=== PATIENT | female | born 1955 | race Caucasian/White ===

== ENCOUNTER → 2019-04-26 | Outpatient (CLI) | payer BC, SELFPAY ==
--- NOTE | 2019-04-26 15:04 | RAD_ITS ---
STUDY: X-RAY - RIGHT KNEE REASON FOR EXAM: Female, 63 years old. Knee pain TECHNIQUE: 4 view(s) of the knee. COMPARISON: None. FINDINGS: Normal visualized distal femur. Normal visualized proximal tibia and fibula. Normal proximal tibiofibular articulation. Normal medial femorotibial compartment. Normal lateral femorotibial compartment. Normal patellofemoral articulation. The soft tissue structures are unremarkable. RAD/Knee 4 or More Views IMPRESSION: Normal x-ray examination of the knee. Electronically Signed: Lazaro Miller MD at 15:33 EDT Tel , Service support ,
--- NOTE | 2019-04-26 15:04 | RAD_ITS ---
STUDY: X-RAY - PELVIS AND RIGHT HIP REASON FOR EXAM: Female, 63 years old. Hip pain TECHNIQUE: 3 views of the pelvis and hip. COMPARISON: None. FINDINGS: There is a non-specific bowel gas pattern. Normal visualized soft tissue structures. Normal bilateral iliac wings, sacroiliac joints and visualized sacrum. Normal bilateral superior and inferior pubic rami. Normal pubic symphysis. Normal bilateral ischial tuberosities. Normal visualized femoral head. Normal acetabulum. Normal hip joint. RAD/HIP, UNI W/ Pelvis 2-3 Views IMPRESSION: Normal x-ray examination of the pelvis and hip. Electronically Signed: Lazaro Miller MD at 15:34 EDT Tel , Service support ,
== END | disposition home or self-care (01) ==
LOC: MTRAD 15:02
PROVIDERS: Family Provider Family Medicine; PCP Family Medicine; Referring Provider Family Medicine; Visit Provider Family Medicine
DX: M79.604 Pain in right leg (principal)
CPT/HCPCS: 73502; 73564

== ENCOUNTER → 2019-09-27 14:01 | Outpatient (CLI) | payer BC, SELFPAY ==
--- NOTE | 2019-09-27 14:04 | RAD_ITS ---
STUDY: X-RAY - PELVIS AND RIGHT HIP REASON FOR EXAM: Female, 64 years old. Atraumatic right hip pain. TECHNIQUE: 3 views of the pelvis and hip. COMPARISON: April 26, 2019 FINDINGS: There is a non-specific bowel gas pattern. Normal visualized soft tissue structures. Normal bilateral iliac wings, sacroiliac joints and visualized sacrum. Normal bilateral superior and inferior pubic rami. Normal pubic symphysis. Normal bilateral ischial tuberosities. Normal visualized femoral head. Normal acetabulum. Normal hip joint. RAD/HIP, UNI W/ Pelvis 2-3 Views IMPRESSION: No interval change and no acute finding. Electronically Signed: Elian Santiago MD at 17:59 EST , Service support ,
== END ==
PROVIDERS: PCP Family Medicine; Referring Provider Family Medicine; Visit Provider Family Medicine
DX: M25.551 Pain in right hip (principal)
CPT/HCPCS: 73502

== ENCOUNTER 2019-10-05 11:48 | Outpatient (RCR) | payer BC, SELFPAY ==
--- NOTE | 2019-10-05 12:57 | HP.PTEVAL_ITS ---
Patient's Visit Information ROBINSON MARIA is a 64 year old F referred to Physical Therapy by Dr. Edie Salas MD with a diagnosis of RIGHT HIP OA. Date of Evaluation: 10/05/19 Physical Therapist: Lori Quick PT, Cert MDT - Visit Plan Frequency: 2x /Week Duration: 4-6 Months Plan: AQUATIC THERAPY FOR BACK AND RIGHT LE PAIN RELEIF, POSTURE CORRECTION/STRENGTHENING, INSTRUCTION IN APPROPRIATE BODY MECHANICS AND ACTIVITY MODIFICATIONS. DLS STARTING WITH A NEUTRAL SPINE PROGRESSING ROM TOLERATED. LALO LE ROM, STRETCHING AND STRENGTHENING. HEP INSTRUCTION. - Subjective Findings: Work/Leisure: [employer] [facility]. Disability: NO. Present symptoms: LBP, RIGHT HIP, THIGH, LEG, FOOT AND TOE PAIN. NO NUMBNESS OR TINGLING. RIGHT LE WEAKNESS. Present since: RIGHT HIP/LEG PAIN STARTED ABOUT MAR 2019. Pain Scale: WORST 8/10, LEAST 2/10. Currently: 6/10 - GETTING WORSE. Commenced as a result of: NO APPARENT REASON. Symptoms at onset: RIGHT HIP. Worse: WALKING, RIGHT SDLY. Better: SITTING. Disturbed sleep: YES. Previous history/Previous treatment: RIGHT HIP PAIN ABOUT 5 YEARS AGO - MILD BONE SPURS. HAD PT. GOT BETTER WITH TIME. FULL RECOVERY. NO INJECTIONS. NO HIP SURGERY. 1996 L5S1 DISECTOMY (SCIATICA DOWN RIGHT LEG) - FULL RECOVERY. Treatment this episode: HEAT, ICE, WALKING, OTC MEDS, TENS. NO SPECIALIST CONSULTS THIS EPIDODE. Coughing/sneezing/straining: NEGATIVE. Gait: SLOW, LOOKS DOWN, HUNCHED OVER, LIMP. TRYIES TO STOP AND STAND UP STRAIGHT BUT DOESN'T HELP. Difficulty initiating urinatin: NO. Accidents: NO. Unexplained weight loss: NO. Imaging: RECENT RIGHT HIP X- RAY. PMH: UNREMARKABLE. Recent major surgery: UNREMARKABLE - Objective Sitting/Standing Posture: POOR. SCOLIOSIS? Lordosis: REDUCED. Lateral shift: MILD LEFT. Relevant shift: NO. Active Correction of posture: WORSE. Other Observations: INDEP SLOW ANTALGIC GAIT WITH LIMP ON RIGHT LE. NO ASSISTIVE DEVICES. NO LOB. Motor deficit: LLE 5/5. RIGHT LE: HIP 4/5, KNEE 5/5, ANKLE 5/5. Sensory deficit: MILD ALTERED SENSATION RIGHT LATERAL THIGH COMPARED TO LEFT. ROM deficit: LALO LE'S WFL. Reflexes: 2/3 LALO LE'S. Dural Signs: POSITIVE RIGHT LE. Lumbar mvmt loss: flex - MOD. ext - SELENE. R SG - SELENE - PRODUCES LBP AND SHOOTING PAIN DOWN RIGHT LE. L SG - MOD. Core strength: POOR. Palpation: MILD TENDERNESS WITH PALPATION OF THE RIGHT LATERAL HIP AND THIGH REGION. VERY TIGHT LALO LUMBAR PARASPINALS. TREATMENT: NEUROMUSCULAR REEDUCATION - RETRAINING OF MVMT AND POSTURE FOR SITTING, LYING AND STANDING ACTIVITIES. - Goals Goal 1:: DECREASE C/O LOW BACK AND RIGHT LE PAIN Goal Time Frame: 4-6 Weeks Goal 2:: IMPROVE BENDING, LIFTING, STANDING AND WALKING FUNCTION Goal Time Frame: 4-6 Weeks Goal 3:: PATIENT WILL BE INDEP WITH A WATER EX PROGRAM AND HEP FOR CONTINUED IMPROVEMENT ONCE FORMAL PHYSICAL THERAPY CONCLUDES. Goal Time Frame: 4-6 Weeks - Rehabilitation Potential Rehabilitation Potential: Fair - Anticipated Interventions Patient/Client Instruction: Educate patient on: Condition, Plan of Care, Risk Factors, Benefits of Fitness Program For the Purpose of:: To improve self management Therapeutic Exercise to Include: Strength training, Balance training, Postural training, Flexibilty training, Gait and locomotor training, Neuromotor development, In an aquatic setting, Dynamic Lumbar Stabilization For the Purpose of:: To decrease pain, To increase ROM, To improve muscle performance and motor function, To increase tolerance to activity/condition/position, To improve ability of physical actions for home/community/work/leisure, To improve gait and locomotor functions Thank you for the opportunity to evaluate your patient. For Medicare and Medicare HMO plans, please review the plan of care and approve it. It will need to be FAXED BACK to us at [phone] for Medicare purposes. For Medicare only, by signing this I certify the plan of care. Please let me know if there are questions or concerns regarding this plan of care. Physician Signature: Date:
--- NOTE | 2019-11-24 15:11 | HP.PT.NRP ---
ROBINSON MARIA was seen in my office for initial evaluation on 10/05/19. The following Plan of Care was established for this patient: Initial Frequency: 2x /Week Initial Duration: 4-6 Months Patient/Client Instruction: Educate patient on: Condition, Plan of Care, Risk Factors, Benefits of Fitness Program For the Purpose of:: To improve self management Therapeutic Exercise to Include: Strength training, Balance training, Postural training, Flexibilty training, Gait and locomotor training, Neuromotor development, In an aquatic setting, Dynamic Lumbar Stabilization For the Purpose of:: To decrease pain, To increase ROM, To improve muscle performance and motor function, To increase tolerance to activity/condition/position, To improve ability of physical actions for home/community/work/leisure, To improve gait and locomotor functions This patient was last seen in our office 10/05/19. Pertinent comments regarding their Physical therapy will appear below: This patient has not returned to Physical Therapy and is appropriate to return to MD for further follow-up as needed. At this point I will be discontinuing this patient from physical therapy. I would be happy to see this patient again in the future if found appropriate by the physician. Thank you! Lori Quick, PT, Cert MDT
== END 2019-10-05 19:00 | disposition home or self-care (01) ==
LOC: PT 11:48
PROVIDERS: PCP Family Medicine; Referring Provider Family Medicine; Visit Provider Family Medicine
DX: M16.11 Unilateral primary osteoarthritis, right hip (principal)
CPT/HCPCS: 97112; 97162

== ENCOUNTER → 2019-11-03 11:57 | Outpatient (CLI) | payer BC, SELFPAY ==
--- NOTE | 2019-11-03 12:14 | BI_ITS ---
MAMMOGRAPHY - BILATERAL SCREENING REASON FOR EXAM: Female, 64 years old. Routine annual screening examination. PERTINENT HISTORY: Non-contributory. Bilateral breast implants. TECHNIQUE: Digital bilateral breast jose a (3D mammographic acquisition) in the CC and MLO projections. 2-D mediolateral oblique (MLO) and craniocaudad (CC) views of both breasts were obtained. CAD: Full Field Digital Mammography with Computer Added Detection was performed. COMPARISON: Comparison is made with prior outside examination dated February 17, 2018. FINDINGS: Breast Composition: There are scattered areas of fibroglandular density. There are no dominant masses or suspicious calcifications. Folds are seen within the bilateral breast implants. These are essentially unchanged. Clinical correlation is recommended with respect to possible implant rupture bilaterally. No other significant abnormalities are identified. There has been no significant change since the prior study. BI/SCREEN MAMM (CAD) W/JOSE A BILAT IMPRESSION: Stable bilateral screening mammogram. Yearly follow-up mammogram recommended. (A) ASSESSMENT CATEGORY: BIRADS Category 2: Benign. A letter regarding these results will be sent to the patient by the facility within 30 days. Approximately 10% of breast cancers are not detected by mammography. A normal mammogram should not delay biopsy of a clinically suspicious abnormality. [id number] Electronically Signed: Darshan Hurley, at 8:52 EDT , Service support ,
== END ==
PROVIDERS: PCP Family Medicine; Referring Provider Family Medicine; Visit Provider Family Medicine
DX: Z12.31 Encounter for screening mammogram for malignant neoplasm of breast (principal)
CPT/HCPCS: 77063; 77067

== ENCOUNTER 2019-12-04 14:26 | Outpatient (RCR) | payer BC, SELFPAY | END 2019-12-04 14:26 | disposition home or self-care (01) | LOC: PT 14:26 | PROVIDERS: Family Provider Family Medicine; PCP Family Medicine; Referring Provider Family Medicine; Visit Provider Family Medicine | DX: R69 Illness, unspecified (principal) ==